=== PATIENT | male | born 1995 | race Caucasian/White ===

== ENCOUNTER 2020-11-05 17:41 | Emergency (ER) | payer OTHER ==
[~2020-11-05] VITALS: Ht 188 cm; Wt 80.9 kg
[2020-11-05] MEDS ORDERED: morphine 4 MG/ML inj SYRINge IV ONE (17:50)
[2020-11-05] MEDS ORDERED: bacitracin 15gm ointment TP ONE ×2 (17:50→19:10)
[2020-11-05] MEDS ORDERED: ondansetron/PF 4mg/2ml inj IV ONE ×2 (17:50→18:25)
[2020-11-05] MEDS ORDERED: ONDA4TAB6 PO (18:22)
[2020-11-05] MEDS ORDERED: HYDR-3965 PO (18:22)
[2020-11-05] MEDS ORDERED: fentaNYL/PF 50MCG/1 ML 2ML syringe IV ONE (18:25)
[2020-11-05] MEDS ORDERED: etomidate 2mg/ml inj. IV ONE (18:25)
[2020-11-05] MEDS ORDERED: LIDOcaine 1% 30ml preserv. free vial IJ ONE (19:10)
[2020-11-05] MEDS ORDERED: TETanus/Pertussis (Acell)/Diphther VAC/PF (Tdap-Adult) 0.5ml syringe IMVAC ONE (19:10)
[2020-11-05] MEDS ORDERED: etomidate 2mg/ml inj. IV STA (19:32)
[2020-11-05] MEDS ORDERED: propofol 1000mg/100ml bottle 100 ML IV ONE (19:51)
--- NOTE | 2020-11-05 20:23 | NUR ---
0-30mg of etomidate IVP verbal order by Dr. Scott 1949-50 mg of propofol IVP verbal order by Dr. Scott 1951-100mf of propofol IVP verbal order by Dr. Scott 1954-50mg of propofol IVP verbal order by Dr. Scott 1955--100mg of propofol IVP verbal order by Dr. Scott 1957-50mg of propofol IVP verbal order by Dr. Scott 1999-100 mg of propofol IVP verbal order by Dr. Scott
[2020-11-05] MEDS ORDERED: propofol (Diprivan) 10mg/ml 100ml bottle IV ONE (20:45)
[2020-11-05 21:20] VITALS: BP 129/68
== END 2020-11-05 21:22 | disposition home or self-care (01) ==
LOC: ER 17:42
DX: S52.591A Other fractures of lower end of right radius, initial encounter for closed fracture (principal); S63.502A Unspecified sprain of left wrist, initial encounter; Z79.899 Other long term (current) drug therapy; W23.0XXA Caught, crushed, jammed, or pinched between moving objects, initial encounter; Y93.89 Activity, other specified; Y92.89 Other specified places as the place of occurrence of the external cause; Y99.8 Other external cause status
CPT/HCPCS: 25605; 73100; 73110; 73130; 90471; 90715; 94799; 96374; 96375; 96376; 99152; 99153; 99285; J2270; J2405; J2704; J3010